=== PATIENT | male | born 1970 | race Caucasian/White ===

== ENCOUNTER 2021-11-15 08:05 | Emergency (ER) | payer BC ==
[~2021-11-15] VITALS: Ht 175.3 cm; Wt 99.8 kg
[2021-11-15] MEDS ORDERED: NEXIUM20 MG PO (08:19)
[2021-11-15] MEDS ORDERED: HYDROCODON-ACE1 EA10 PO (09:24)
[2021-11-15] MEDS ORDERED: BACTRIM DS TAB1 EACH PO (09:24)
== END 2021-11-15 09:30 ==
LOC: ED 08:05
DX: L02.411 Cutaneous abscess of right axilla (principal); Z79.899 Other long term (current) drug therapy
CPT/HCPCS: 10060; 99283-25

== ENCOUNTER 2023-06-06 11:53 | Day surgery (SDC) | payer BC ==
[~2023-06-06] VITALS: Ht 175.3 cm; Wt 99.8 kg
[~2023-06-06 11:53] MED LIST: ALLEGRA ALLERGY60 MG PO; BACTRIM DS TAB1 EACH PO; HYDROCODON-ACE1 EA10 PO; IBLOOD GLUCOSE TEST STRIP 1 EA TEST VI PRN; LACTATED RINGER'S 1,000 ML IV SCH; LIDOCAINE HCL 1% 5 ML SDV INJ ONE; MIDAZOLAM HCL 5 MG/5 ML VIAL IV PRN; MIRALAX119 GM PO; NEXIUM20 MG PO; fentaNYL citrate 100 MCG/2 ML VIAL IV PRN
[2023-06-06 12:36] VITALS: BP 110/66
[2023-06-06] MEDS ORDERED: MIDAZOLAM HCL 5 MG/5 ML VIAL ONE (16:03)
[2023-06-06] MEDS ORDERED: fentaNYL citrate 100 MCG/2 ML VIAL ONE (16:03)
--- NOTE | 2023-06-06 17:19 | NUR ---
06/06/23 171 Lamar Oreilly 1658 PT ARRIVED IN PACU SLEEPY WITH NO C/O'S. ABD FIRM 1710 DR AT BEDSIDE. ALL QUESTIONS ANSWERED. 1718 SITTING UP IN BED SIPPING ON WATER. ENCOURAGED TO PASS FLATUS.
[2023-06-06 17:33] VITALS: BP 125/78
--- NOTE | 2023-06-09 11:12 | PATH ---
[facility] [address] [facility] [place], [place] [address] Signed SPECIMEN(S): A DESCENDING LEFT COLON POLYPS SPECIMEN SOURCE: A. DESCENDING LEFT COLON POLYPS FINAL PATHOLOGIC DIAGNOSIS: Colon, descending left, polypectomies: - Sessile serrated polyps (multiple fragments) BRP MICROSCOPIC EXAMINATION: Histologic sections of all submitted blocks are examined by light microscopy. These findings, together with the gross examination, support the pathologic diagnosis. GROSS DESCRIPTION: The specimen, labeled and designated "Henderson, " and designated on the requisition "colon, descending/left polyp," is received in formalin and consists of multiple fragments of soft quintero tissue that are up to 0.5 cm in greatest dimension. Entirely submitted in (A1). TW (under the direct supervision of a pathologist) The Gross Description was prepared using a voice recognition system. The report was reviewed for accuracy; however, sound-alike word errors, addition and/or deletions may occur. If there is any question about this report, please contact Client Services. ADDITIONAL NOTES: Immunohistochemical and/or in situ hybridization studies if performed in this case included appropriate positive controls that reacted as expected. This test was developed and its performance characteristics determined by [facility]. It has not been cleared or approved by the U.S. Food and Drug Administration. The FDA has determined that such clearance or approval is not necessary. This test is used for clinical purposes. It should not be regarded as investigational or for research. [facility] is certified under the Clinical Laboratory Improvement Amendments of 1988 (CLIA) as qualified to perform high complexity clinical laboratory testing. PERFORMING LABORATORY: Technical component was performed by [facility], Jin Weinstein, PATIENT NAME: JALEESA HENDERSON PATHOLOGY DATE OF : 72 REPORT #: [id number] PHYSICIAN: NEVA WHALEN PCP: GILDA SWANN MD REPORT IS CONFIDENTIAL AND NOT TO BE RELEASED WITHOUT AUTHORIZATION [facility] [address] [place], [place] [address] [place] [address] (CLIA# [id number]). Professional interpretation was performed by [facility] [address] [address] [id number] Diagnostician: Norman Tabor MD Pathologist Electronically Signed 06/09/2023 Copies: ~ PATIENT NAME: JALEESA HENDERSON PATHOLOGY DATE OF : 72 REPORT #: [id number] PHYSICIAN: NEVA WHALEN PCP: GILDA SWANN MD REPORT IS CONFIDENTIAL AND NOT TO BE RELEASED WITHOUT AUTHORIZATION
--- NOTE | 2023-06-10 09:58 | OR ---
[facility] [address] [place], [place] [address] Signed DATE OF OPERATION: 06/06/2023 SURGEON: Valentina Tim MD PREOPERATIVE DIAGNOSIS: Colon screening. POSTOPERATIVE DIAGNOSIS: Probable polyp at 90 cm (excised). PROCEDURE: Total colonoscopy to cecum with cold morcellation polypectomy x1. ANESTHESIA: Intravenous sedation, fentanyl 150 mcg, Versed 9 mg. INDICATION: This 52-year-old white man is patient of Dr. Gilda He. He is here for screening colonoscopy. He has no prior colonoscopy and has no symptoms of bleeding diarrhea constipation and no family history of colon cancer. He understands the risk of bleeding, infection, and perforation related to screening colonoscopy and wished to proceed. FINDINGS: The prep was quite good. Complete colonoscopy was undertaken of the cecum. There was a small polyp at 90 cm, which was excised with cold morcellation technique. The remaining colon was normal. DESCRIPTION OF PROCEDURE: The patient was brought to the endoscopy suite and placed in lateral decubitus position, given intravenous sedation to the point of slurred speech and nystagmus. Digital rectal examination was normal. An Olympus video colonoscope was passed in the rectum and manipulated throughout the colon ultimately intubating the cecum. The scope was then withdrawn. A careful inspection showed no sign of abnormality until approximately 90 cm from the anal verge, where a small linear polyp was noted. Narrow-band imaging confirmed this likely to be a polyp. This scope was manipulated to allow for complete excision of the polyp with cold morcellation technique. The scope was withdrawn further. There were no other findings of concern. Retroflexed view of the rectum was normal. Scope was removed. The patient Electronically Signed By: VALENTINA TIM MD 06/10/23 0958 PATIENT NAME: JALEESA HENDERSON OPERATIVE REPORT DATE OF : 72 REPORT #: [id number] PHYSICIAN: VALENTINA TIM MD PCP: GILDA HE MD REPORT IS CONFIDENTIAL AND NOT TO BE RELEASED WITHOUT AUTHORIZATION [facility] [address] [facility] [place], [place] [address] Signed was taken to the recovery room in good condition. CONCLUDING DIAGNOSIS: Small polyp left colon at 90 cm. PLAN: Recommend repeat colonoscopy in 5 years unless the polyp proves to be non-adenomatous. He will return to the ongoing care of Dr. He. MD RYAN Matute/JESSICA /[id number] cc: Gilda He MD Copies: GILDA HE MD ~ Electronically Signed By: VALENTINA TIM MD 06/10/23 0958 PATIENT NAME: JALEESA HENDERSON OPERATIVE REPORT DATE OF : 72 REPORT #: [id number] PHYSICIAN: VALENTINA TIM MD PCP: GILDA HE MD REPORT IS CONFIDENTIAL AND NOT TO BE RELEASED WITHOUT AUTHORIZATION
== END 2023-06-06 17:40 | disposition home or self-care (01) ==
LOC: OPS 11:53 → DS 11:53 → OPS 13:00 → DS 13:00 → OPS 17:40
PROVIDERS: ATTEND Surgery
PROC: 0DBE8ZZ Excision of Large Intestine, Via Natural or Artificial Opening Endoscopic (ICD-10-PCS; principal; 2023-06-06 13:00)
DX: Z12.11 Encounter for screening for malignant neoplasm of colon (principal); D12.4 Benign neoplasm of descending colon; K21.00 Gastro-esophageal reflux disease with esophagitis, without bleeding; Z98.890 Other specified postprocedural states; Z79.899 Other long term (current) drug therapy; Z88.8 Allergy status to other drugs, medicaments and biological substances
CPT/HCPCS: 99153; G0500; J2250; J3010; J7121

== ENCOUNTER 2024-05-09 12:56 | Day surgery (SDC) | payer BC ==
[~2024-05-09] VITALS: Ht 175.3 cm; Wt 99.8 kg
[2024-05-09 13:09] VITALS: BP 112/68
[2024-05-09] MEDS ORDERED: fentaNYL citrate 100 MCG/2 ML VIAL ONE ×2 (15:25→16:21)
[2024-05-09] MEDS ORDERED: MIDAZOLAM HCL 5 MG/5 ML VIAL ONE ×2 (15:25→16:17)
[2024-05-09 17:23] VITALS: BP 126/82
--- NOTE | 2024-05-09 17:56 | NUR ---
05/09/24 1756 Elva Wilkinsah Edward 1647- PT PRESENTS TO PACU, LEFT LATERAL POSITION, AWAKE BUT DROWSY. DENIES NAUSEA, REQUESTING WATER. O2 AT 2L PER NC, BREATHING EVEN AND NON LABORED. LR INFUSING TO RFA IV. ABD ROUND, FIRM, ENCOURAGED TO PASS GAS. ALL MONITORS IN PLACE. 1650- PT MOVED TO ROOM AIR, NO SIGNS OF DISTRESS. SIP OF WATER GIVEN, TOLERATING WELL. 1655- PT SAT UP IN BED, SIPPING ON WATER, NO SIGNS OF DISTRESS. C/O GAS PAINS, ENCOURAGED TO PASS GAS. 1703- PT UP TO SIDE OF BED, WANTING TO GO TO THE BATHROOM. AMBULATED WITH STEADY GAIT. 1706- PT BACK TO BED, REPORTS BELCHING SOME IN THE BATHROOM AND RELIEVED SOME PRESSURE. WANTS TO GO HOME TO PASS GAS. PT TO GET DRESSED, CALLED FOR RIDE HOME. 1715- PT VERBALIZED UNDERSTANDING OF INSTRUCTIONS, SALINE LOCK REMOVED, TIP INTACT, DRESSING APPLIED. PT DROWSY BUT ORIENTED AND ANSWERING QUESTIONS APPROPRIATELY. PT AMBULATED TO WHEELCHAIR WITH STEADY GAIT. TAKEN OUT TO FAMILY CAR, NO SIGNS OF DISTRESS. ALL BELONGINGS WITH PT.
--- NOTE | 2024-05-12 07:47 | OR ---
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 POSTOPERATIVE DIAGNOSIS: Normal colon to cecum. PROCEDURE: Total colonoscopy to cecum. ANESTHESIA: Intravenous sedation, fentanyl 150 mcg, Versed 6 mg. INDICATIONS: This 53-year-old white man is a patient of Dr. Gilda He. He underwent colonoscopy in 2023, was found to have a serrated adenoma at 90 cm. This was excised completely. Given the notable histology of serrated adenoma, I have recommended early repeat colonoscopy. He currently has no symptoms of bleeding, diarrhea, or constipation and no family history of colon cancer. He understands the risk of colonoscopy including, but not limited to bleeding, infection, and perforation and wished to proceed. FINDINGS: The prep was excellent. Complete colonoscopy was undertaken to the cecum with full intubation of the cecum. There was no evidence of polyps, diverticular formation, colitis, or cancer. DESCRIPTION OF PROCEDURE: The patient was brought to the endoscopy suite and placed in lateral decubitus position given intravenous sedation to the point of slurred speech and nystagmus. Digital rectal examination was normal. An Olympus video colonoscope was passed in the rectum and manipulated throughout the colon ultimately intubating the cecum itself. The ileocecal valve and appendiceal orifice were normal. The scope was withdrawn from that point. Examination throughout showed no sign of abnormality. Special care was taken at the 90 cm area to assure no persistence or recurrence of serrated adenoma. There was no such finding. Further withdrawal showed no other abnormality. Retroflexed view of the rectum was reasonably Electronically Signed By: VALENTINA TIM MD 05/12/24 0747 PATIENT NAME: JALEESA HENDERSON OPERATIVE REPORT DATE OF : 72 REPORT #: [id number] PHYSICIAN: VALENTINA ITM MD PCP: GILDA HE MD REPORT IS CONFIDENTIAL AND NOT TO BE RELEASED WITHOUT AUTHORIZATION [facility] [address] [place], [place] [address] Signed normal with minimal hemorrhoidal change. The scope was removed. The patient was taken to the recovery room in good condition. CONCLUDING DIAGNOSIS: Normal colon. PLAN: I recommend repeat colonoscopy in 10 years sooner if clinically indicated. He will return to the ongoing care of Dr. Gilda He. Valentina Tim MD JM/MODL /[id number] Copies: ~ Electronically Signed By: VALENTINA TIM MD 05/12/24 0747 PATIENT NAME: JALEESA HENDERSON OPERATIVE REPORT DATE OF : 72 REPORT #: [id number] PHYSICIAN: VALENTINA TIM MD PCP: GILDA HE MD REPORT IS CONFIDENTIAL AND NOT TO BE RELEASED WITHOUT AUTHORIZATION
== END 2024-05-09 17:15 | disposition home or self-care (01) ==
LOC: OPS 12:56 → DS 12:57 → OPS 14:00 → DS 14:00 → OPS 14:30
PROVIDERS: ATTEND Surgery
PROC: 0DJD8ZZ Inspection of Lower Intestinal Tract, Via Natural or Artificial Opening Endoscopic (ICD-10-PCS; principal; 2024-05-09 14:30)
DX: Z09 Encounter for follow-up examination after completed treatment for conditions other than malignant neoplasm (principal); K21.9 Gastro-esophageal reflux disease without esophagitis; Z86.0101 Personal history of adenomatous and serrated colon polyps; Z79.899 Other long term (current) drug therapy
CPT/HCPCS: 99153; G0500; J2250; J3010; J7121